=== PATIENT | female | born 1960 | race Two or more races ===

== ENCOUNTER 2022-01-05 09:37 | Emergency (ER) | payer SELFPAY ==
[~2022-01-05] VITALS: Ht 167.6 cm; Wt 70.0 kg
[2022-01-05] MEDS ORDERED: KETOROLAC TROMETH 30 MG/ML 1ML VIAL IV ONE (13:00)
[2022-01-05 14:40] VITALS: BP 132/68
== END 2022-01-05 14:44 | disposition home or self-care (01) ==
LOC: ER 09:37 → EDBD 09:37 → ER 14:44
DX: S80.12XA Contusion of left lower leg, initial encounter (principal); S80.11XA Contusion of right lower leg, initial encounter; S00.511A Abrasion of lip, initial encounter; Y04.8XXA Assault by other bodily force, initial encounter; Y93.89 Activity, other specified; Y92.89 Other specified places as the place of occurrence of the external cause; Y99.8 Other external cause status
CPT/HCPCS: 70450; 72125; 73552; 73562; 93005; 96374; 99284; J1885